=== PATIENT | female | born 1995 | race Caucasian/White ===

== ENCOUNTER 2016-07-31 19:42 | Emergency (ER) | payer MEDICAID ==
[~2016-07-31] VITALS: Ht 160 cm; Wt 85.8 kg
[~2016-07-31 19:42] MED LIST: HYDR-3533 PO; Z.0.BCPILL PO; ZOFR4TAB3 SL
[2016-07-31 20:00] VITALS: BP 143/82; PULSE 86; RESP 16; TEMP 99.1; O2SAT 100
[2016-07-31 21:29] VITALS: BP 121/69; PULSE 67; RESP 18; O2SAT 97
[2016-07-31 21:34] VITALS: BP 113/53; PULSE 112; RESP 18; O2SAT 100
[2016-07-31] MEDS ORDERED: ASPIRIN 81 MG CHEW TAB PO ONE (21:45)
[2016-07-31] MEDS ORDERED: SODIUM CHLORIDE 0.9% FLUSH 5 ML FLUSH IVF PRN (21:45)
[2016-07-31] MEDS: NITROGLYCERIN 0.4 MG SL 25 TABS/BTL SL SCH ×3 (21:50→22:02)
--- NOTE | 2016-07-31 21:56 | RADHPO ---
EXAM DATE/TIME: 07/31/2016 21:47 [facility] COMPARISON: No previous studies available for comparison. INDICATIONS : Chest pain MEDICAL HISTORY : None. SURGICAL HISTORY : None. ENCOUNTER: Initial ACUITY: 2 days PAIN SCORE: 6/10 LOCATION: Bilateral chest FINDINGS: PA and lateral views of the chest demonstrate the lungs to be symmetrically aerated without evidence of mass, infiltrate or effusion. The cardiomediastinal contours are unremarkable. Osseous structure s are intact. CONCLUSION: No acute disease. Jan Perdue MD on July 31, 2016 at 21:54 Board Certified Radiologist. This report was verified electronically.
[2016-07-31 22:05] VITALS: RESP 18; O2SAT 100
[2016-07-31 22:11] VITALS: BP 123/61; PULSE 87; RESP 16; O2SAT 98
[2016-07-31 22:15] LABS: AUTOMATED NEUTROPHIL # 5.6 TH/MM3 (1.8-7.7); BASOPHIL # 0.1 TH/MM3 (0-0.2); BASOPHIL % 0.9 % (0.0-2.0); EOSINOPHIL # 0.1 TH/MM3 (0-0.4); EOSINOPHIL % 1.7 % (0.0-4.0); HEMATOCRIT 37.9 % (35.0-46.0); HEMO FLAGS DIFF FINAL; LYMPHOCYTE # 2.1 TH/MM3 (1.0-4.8); MEAN CELL VOLUME 79.5 FL (80.0-100.0); MEAN CORPUSCULAR HEMOGLOBIN 27.7 PG (27.0-34.0); MEAN CORPUSCULAR HGB CONC 34.8 % (32.0-36.0); MONO % 4.8 % (0.0-8.0); NEUT % 67.6 % (16.0-70.0); PLATELET COUNT 255 TH/MM3 (150-450); RED BLOOD COUNT 4.76 MIL/MM3 (4.00-5.30); RED CELL DISTRIBUTION WIDTH 12.4 % (11.6-17.2); WHITE BLOOD COUNT 8.3 TH/MM3 (4.0-11.0)
[2016-07-31 22:23] LABS: CHLORIDE 109 MEQ/L (98-107); POTASSIUM 3.7 MEQ/L (3.5-5.1); SODIUM (NA) 143 MEQ/L (136-145)
[2016-07-31 22:26] LABS: ANION GAP 8 MEQ/L (5-15); BICARBONATE 26.4 MEQ/L (21.0-32.0)
[2016-07-31 22:27] LABS: BLOOD UREA NITROGEN 9 MG/DL (7-18); MAGNESIUM 2.3 MG/DL (1.5-2.5)
[2016-07-31 22:30] LABS: ALT (GPT) 14 U/L (9-42); AST (GOT) 13 U/L (16-38); GLOMERULAR FILTRATION RATE 84 ML/MIN (>89)
[2016-07-31 22:31] LABS: TOTAL BILIRUBIN ADULT 0.2 MG/DL (0.2-1.0)
[2016-07-31 22:32] LABS: ALKALINE PHOSPHATASE 90 U/L (45-117); CREATINE KINASE 131 U/L (26-192)
[2016-07-31 22:45] LABS: CKMB LESS THAN 0.5 NG/ML (0.5-3.6)
[2016-07-31] MEDS ORDERED: IBUP-232 PO (23:07)
--- NOTE | 2016-07-31 23:09 | PD ---
HPI Chief Complaint: Chest Pain Time Seen by Provider: 20:27 Travel History International Travel<30 days: No Contact w/Intl Traveler<30days: No Traveled to known affect area: No History of Present Illness HPI The patient is a 21-year-old female that complains of a somewhat sharp and pleuritic chest pain for 2 weeks. She has no history of heart disease or heart murmur. She denies any nausea, vomiting, shortness of breath, diaphoresis or radiation of pain. She denies any palpitations, syncopal or near syncopal spells. She denies any recent fever or cough. PFSH Past Medical History Autoimmune Disease: No Cancer: No Cardiovascular Problems: No Diminished Hearing: No Endocrine: No Gastrointestinal Disorders: No Genitourinary: No Immune Disorder: No Implanted Vascular Access Dvce: No Musculoskeletal: No Neurologic: No Psychiatric: No Reproductive: No Respiratory: No Influenza Vaccination: No ?: Not LMP: UNKNOWN IUD IN PLACE : 4 Para: 2 Miscarriage: 1 : 1 Past Surgical History Section: Yes Other Surgery: No Social History Alcohol Use: No Tobacco Use: No Substance Use: No Allergies-Medications (Allergen,Severity, Reaction): Coded Allergies: No Known Allergies (Verified , 07/31/16) Reported Meds & Prescriptions Reported Meds & Active Scripts Active No Active Prescriptions or Reported Medications Review of Systems Except as stated in HPI: all other systems reviewed are Neg Physical Exam Narrative GENERAL: The patient is alert, oriented 3 in no minimal apparent distress. The blood pressure is 143/82 but the rest the vital signs are normal. The temperature is 99.1. SKIN: Warm and dry. No skin rash is seen. HEAD: Atraumatic. Normocephalic. EYES: Pupils equal and round. No scleral icterus. No injection or drainage. ENT: No nasal bleeding or discharge. Mucous membranes pink and moist. Throat is clear and tympanic membranes are clear. NECK: Trachea midline. No JVD. CARDIOVASCULAR: Regular rate and rhythm. No murmur appreciated. RESPIRATORY: No accessory muscle use. Clear to auscultation. Breath sounds equal bilaterally. GASTROINTESTINAL: Abdomen soft, non-tender, nondistended. Hepatic and splenic margins not palpable. MUSCULOSKELETAL: No obvious deformities. No clubbing. No cyanosis. No edema. NEUROLOGICAL: Awake and alert. No obvious cranial nerve deficits. Motor grossly within normal limits. Normal speech. PSYCHIATRIC: Appropriate mood and affect; insight and judgment normal. Data Data Last Documented VS Vital Signs Date Time Temp Pulse Resp B/P Pulse Ox O2 Delivery O2 Flow Rate FiO2 07/31/16 22:11 87 16 123/61 98 Room Air 07/31/16 20:00 99.1 Orders Electrocardiogram (07/31/16 21:37) Ckmb (Isoenzyme) Profile (07/31/16 21:37) Complete Blood Count With Diff (07/31/16 21:37) Comprehensive Metabolic Panel (07/31/16 21:37) Magnesium (Mg) (07/31/16 21:37) Troponin I (07/31/16 21:37) Ecg Monitoring (07/31/16 21:37) Iv Access Insert/Monitor (07/31/16 21:37) Oximetry (07/31/16 21:37) Oxygen Administration (07/31/16 21:37) Aspirin Chew (Aspirin Chew) (07/31/16 21:45) Sodium Chloride 0.9% Flush (Ns Flush) (07/31/16 21:45) Nitroglycerin Sl (Nitrostat Sl) (07/31/16 21:45) Chest, Pa & Lat (07/31/16 21:37) CKMB (07/31/16 22:00) CKMB% (07/31/16 22:00) Labs Laboratory Tests Test 07/31/16 22:00 White Blood Count 8.3 TH/MM3 Red Blood Count 4.76 MIL/MM3 Hemoglobin 13.2 GM/DL Hematocrit 37.9 % Mean Corpuscular Volume 79.5 FL Mean Corpuscular Hemoglobin 27.7 PG Mean Corpuscular Hemoglobin 34.8 % Concent Red Cell Distribution Width 12.4 % Platelet Count 255 TH/MM3 Mean Platelet Volume 7.8 FL Neutrophils (%) (Auto) 67.6 % Lymphocytes (%) (Auto) 25.0 % Monocytes (%) (Auto) 4.8 % Eosinophils (%) (Auto) 1.7 % Basophils (%) (Auto) 0.9 % Neutrophils # (Auto) 5.6 TH/MM3 Lymphocytes # (Auto) 2.1 TH/MM3 Monocytes # (Auto) 0.4 TH/MM3 Eosinophils # (Auto) 0.1 TH/MM3 Basophils # (Auto) 0.1 TH/MM3 CBC Comment DIFF FINAL Differential Comment Sodium Level 143 MEQ/L Potassium Level 3.7 MEQ/L Chloride Level 109 MEQ/L Carbon Dioxide Level 26.4 MEQ/L Anion Gap 8 MEQ/L Blood Urea Nitrogen 9 MG/DL Creatinine 0.86 MG/DL Estimat Glomerular Filtration 84 ML/MIN Rate Random Glucose 86 MG/DL Calcium Level 9.0 MG/DL Magnesium Level 2.3 MG/DL Total Bilirubin 0.2 MG/DL Aspartate Amino Transf 13 U/L (AST/SGOT) Alanine Aminotransferase 14 U/L (ALT/SGPT) Alkaline Phosphatase 90 U/L Total Creatine Kinase 131 U/L Creatine Kinase MB LESS THAN 0.5 NG/ML Troponin I LESS THAN 0.02 NG/ML Total Protein 8.1 GM/DL Albumin 3.9 GM/DL [facility] Medical Decision Making Medical Screen Exam Complete: Yes Emergency Medical Condition: Yes Medical Record Reviewed: Yes Interpretation(s) The complete metabolic profile shows a GFR of 84 but is otherwise normal. The cardiac enzymes are normal. The CBC is normal. The EKG shows normal sinus rhythm with a rate of 77 and is completely normal. Differential Diagnosis Chest wall pain, pleuritic chest pain, acute coronary syndrome, esophageal pain , gastrointestinal pain Narrative Course The patient appears to have pleuritic chest pain. Plan: The patient will be given Motrin 600 mg 3 times daily and follow-up with her primary care physician. Diagnosis Primary Impression: Pleuritic chest pain Additional Instructions: It is necessary to take the Motrin regularly, 1 tablet 3 times daily. After 3 or 4 days the pain should start subsiding. Follow-up next week with your primary care physician. Med/Other Pt SpecificInfo: Prescription(s) given Scripts Ibuprofen 600 Mg [id number] Mg PO TID #45 TAB Ref 0 Prov:Harpal Goodrich MD 07/31/16 Disposition: 01 DISCHARGE HOME Condition: Stable Harpal Goodrich MD Jul 31, 2016 23:09
[2016-07-31] MEDS ORDERED: KETOROLAC TROMETHAMINE 60 MG/2 ML (IM) VIAL IVP ONE (23:15)
[2016-07-31 23:20] VITALS: BP 119/66; PULSE 78; RESP 16; O2SAT 97
--- NOTE | 2016-08-01 14:01 | EKG ---
Date Performed: 07/31/2016 Time Performed: 22:04:34 PTAGE: 21 years EKG: Sinus rhythm . Since previous tracing, no significant change noted Normal ECG PREVIOUS TRACING : 03/21/2016 21.47 DOCTOR: Srini Ta Interpretating Date/Time 08/01/2016 13:57:38
== END 2016-07-31 23:39 | disposition home or self-care (01) ==
LOC: PHED 19:42
DX: R07.81 Pleurodynia (principal)
CPT/HCPCS: 71020; 80053; 82550; 82552; 83735; 84484; 85025; 93005; 96374; 99284; J1885

== ENCOUNTER 2017-06-02 20:03 | Emergency (ER) | payer MEDICAID ==
[~2017-06-02] VITALS: Ht 160 cm; Wt 88.0 kg
[~2017-06-02 20:03] MED LIST changes: -HYDR-3533 PO; +IBUP-232 PO; -Z.0.BCPILL PO; -ZOFR4TAB3 SL
[2017-06-02 20:22] VITALS: BP 140/75; PULSE 81; RESP 16; TEMP 98.2; O2SAT 98
[2017-06-02] MEDS ORDERED: PRED20 PO (20:36)
--- NOTE | 2017-06-02 20:42 | PD ---
HPI Chief Complaint: ENT Complaint Time Seen by Provider: 20:29 Travel History International Travel<30 days: No Contact w/Intl Traveler<30days: No Traveled to known affect area: No History of Present Illness HPI 22-year-old female presents wears Department with complaints of worsening sore throat over the past 5 days. Patient states she feels like she has swollen glands in the anterior neck which if worsening. Patient feels she may have had a low-grade fever the last several days but otherwise denies headache, cough, ear pain, heartburn, nausea, vomiting, or diarrhea. She has no known drug allergies. PFSH Past Medical History Autoimmune Disease: No Cancer: No Cardiovascular Problems: No Diminished Hearing: No Endocrine: No Gastrointestinal Disorders: No Genitourinary: No Immune Disorder: No Implanted Vascular Access Dvce: No Musculoskeletal: No Neurologic: No Psychiatric: No Reproductive: No Respiratory: No Tetanus Vaccination: Unknown Influenza Vaccination: No ?: Not : 4 Para: 2 Miscarriage: 1 : 1 Past Surgical History Section: Yes Other Surgery: No Social History Alcohol Use: No Tobacco Use: No Substance Use: No Allergies-Medications (Allergen,Severity, Reaction): Coded Allergies: No Known Allergies (Verified Adverse Reaction, Unknown, 06/02/17) Reported Meds & Prescriptions Reported Meds & Active Scripts Active Prednisone 20 Mg Tab 20 Mg PO DAILY 5 Days Review of Systems Except as stated in HPI: all other systems reviewed are Neg General / Constitutional: Positive: Fever Eyes: No: Visual changes HENT: Positive: Sore Throat, Neck Stiffness, Neck Pain, Other (swollen glands.) , No: Headaches, Vertigo, Lightheadedness, Rhinitis, Rhinorrhea, Congestion, Nosebleed, Masses (see history present illness), Dental Difficulties, Ear Discharge, Earache Cardiovascular: No: Chest Pain or Discomfort Respiratory: No: Cough, Shortness of Breath, Wheezing Gastrointestinal: No: Nausea, Vomiting, Diarrhea, Abdominal Pain Genitourinary: No: Dysuria Musculoskeletal: No: Pain Skin: No Rash Neurologic: No: Weakness Psychiatric: No: Depression Endocrine: No: Polydipsia Hematologic/Lymphatic: No: Easy Bruising Physical Exam Narrative GENERAL: Patient appears no acute distress. She has a normal sounding voice. SKIN: Warm and dry. Color. Normal turgor. HEAD: Atraumatic. Normocephalic. EYES: Pupils equal and round. No scleral icterus. No injection or drainage. ENT: No nasal bleeding or discharge. Mucous membranes pink and moist. Posterior pharynx looks completely normal. No sinus tenderness. TMs are clear bilaterally. Uvula is midline. Tonsils appear unremarkable. There is no erythema or exudate. No signs of peritonsillar or pharyngeal abscess. NECK: Trachea midline. Supple. She has tender anterior lymphangitis bilaterally more on the left than the right, but no signs of obvious tonsillar abscess. CARDIOVASCULAR: Regular rate and rhythm. RESPIRATORY: No accessory muscle use. Clear to auscultation. Breath sounds equal bilaterally. GASTROINTESTINAL: Abdomen soft, non-tender, nondistended. Hepatic and splenic margins not palpable. MUSCULOSKELETAL: Extremities without clubbing, cyanosis, or edema. No obvious deformities. NEUROLOGICAL: Awake and alert. No obvious cranial nerve deficits. Motor grossly within normal limits. Five out of 5 muscle strength in the arms and legs. Normal speech. PSYCHIATRIC: Appropriate mood and affect; insight and judgment normal. Data Data Last Documented VS Vital Signs Date Time Temp Pulse Resp B/P (MAP) Pulse Ox O2 Delivery O2 Flow Rate FiO2 06/02/17 20:22 98.2 81 16 140/75 (96) 98 Orders Orders Prednisone (Deltasone) (06/02/17 20:45) MDM Medical Decision Making Medical Screen Exam Complete: Yes Emergency Medical Condition: Yes Differential Diagnosis Upper extremity infection. Lymphangitis. Viral syndrome. Narrative Course Patient is felt medically stable at this time. Patient is given prednisone 40 mg by mouth for inflammation. Patient continued on prednisone 20 mg daily for the next 5 days. Patient is encouraged to use Tylenol, soft foods, and ice chips frequently. Patient should follow-up with her primary care physician or return with worsening symptoms as needed. Diagnosis Primary Impression: Upper respiratory infection Qualified Codes: J06.9 - Acute upper respiratory infection, unspecified; B97.89 - Other viral agents as the cause of diseases classified elsewhere Additional Impression: Lymphangitis Referrals: Primary Care Physician as needed Patient Instructions: General Instructions, Lymphangitis (ED), Prednisone (By mouth) Additional Instructions: Patient is felt medically stable at this time. Patient is given prednisone 40 mg by mouth for inflammation. Patient continued on prednisone 20 mg daily for the next 5 days. Patient is encouraged to use Tylenol, soft foods, and ice chips frequently. Patient should follow-up with her primary care physician or return with worsening symptoms as needed. Med/Other Pt SpecificInfo: Prescription(s) given Scripts Prednisone (Prednisone) 20 Mg Tab 20 MG PO DAILY for 5 Days, #5 TAB 0 Refills Prov: Dieter Beck MD 06/02/17 Disposition: 01 DISCHARGE HOME Condition: Stable Luis Alberto Montenegro Jun 02, 2017 20:42
[2017-06-02] MEDS ORDERED: predniSONE 20 MG TAB PO ONE (20:45)
== END 2017-06-02 20:52 | disposition home or self-care (01) ==
LOC: PHEFT 20:03
DX: J06.9 Acute upper respiratory infection, unspecified (principal); B97.89 Other viral agents as the cause of diseases classified elsewhere; I89.1 Lymphangitis; R50.9 Fever, unspecified
CPT/HCPCS: 99283; J7512

== ENCOUNTER 2017-07-22 21:49 | Emergency (ER) | payer MEDICAID ==
[~2017-07-22] VITALS: Ht 160 cm; Wt 86.2 kg
[~2017-07-22 21:49] MED LIST changes: -IBUP-232 PO; +PRED20 PO
[2017-07-22 22:01] VITALS: BP 149/57; PULSE 75; RESP 18; TEMP 98.7; O2SAT 100
[2017-07-22] MEDS ORDERED: MORPHINE SULFATE 4 MG/ML INJ IV PUSH ONE (22:15)
[2017-07-22] MEDS ORDERED: MORPHINE SULFATE 2 MG/ML INJ IV PUSH ONE (22:15)
[2017-07-22] MEDS ORDERED: ONDANSETRON HCL 4 MG/2 ML VIAL IVP ONE (22:15)
--- NOTE | 2017-07-22 22:20 | PD ---
HPI Chief Complaint: Abdominal Pain Time Seen by Provider: 22:03 Travel History International Travel<30 days: No Contact w/Intl Traveler<30days: No Traveled to known affect area: No History of Present Illness HPI The patient was seen and examined in the presence of the nurse. This patient complains of abdominal pain. Location is right upper quadrant. Severity is moderate. Duration 4 hours. She gets pain roughly once per month. She says that her doctor wasn't concerned with it and so nothing is been done. Started shortly after eating [employer]. Denies fever. No vomiting. No diarrhea. No alleviating factors. Symptoms exacerbated by fatty meal. PFSH Past Medical History Autoimmune Disease: No Cancer: No Cardiovascular Problems: No Diminished Hearing: No Endocrine: No Gastrointestinal Disorders: No Genitourinary: No Immune Disorder: No Implanted Vascular Access Dvce: No Musculoskeletal: No Neurologic: No Psychiatric: No Reproductive: No Respiratory: No : 4 Para: 2 Miscarriage: 1 : 1 Past Surgical History Section: Yes Other Surgery: No Social History Alcohol Use: No Tobacco Use: No Substance Use: No Allergies-Medications (Allergen,Severity, Reaction): Coded Allergies: No Known Allergies (Verified Adverse Reaction, Unknown, 07/22/17) Reported Meds & Prescriptions Reported Meds & Active Scripts Active Zofran (Ondansetron HCl) 4 Mg Tab 4 Mg PO Q6HR PRN Tramadol (Tramadol HCl) 50 Mg Tab 50 Mg PO Q6H PRN Review of Systems General / Constitutional: No: Fever Eyes: No: Visual changes HENT: No: Headaches Cardiovascular: No: Chest Pain or Discomfort Respiratory: No: Shortness of Breath Gastrointestinal: Positive: Abdominal Pain Genitourinary: No: Dysuria Musculoskeletal: No: Pain Skin: No Rash Neurologic: No: Weakness Psychiatric: No: Depression Endocrine: No: Polydipsia Hematologic/Lymphatic: No: Easy Bruising Physical Exam Narrative GENERAL: Well-nourished, well-developed patient with some abdominal pain . SKIN: Focused skin assessment reveals no rash and nodules. Skin is Warm and dry. HEAD: Atraumatic. Normocephalic. EYES: Pupils equal and round. No scleral icterus. No injection or drainage. ENT: No nasal bleeding or discharge. Mucous membranes pink and moist. NECK: Trachea midline. No JVD. CARDIOVASCULAR: Regular rate and rhythm. No murmur appreciated. RESPIRATORY: No accessory muscle use. Clear to auscultation. Breath sounds equal bilaterally. GASTROINTESTINAL: Abdomen soft, mild right upper quadrant tenderness without rebound or guarding, nondistended. Hepatic and splenic margins not palpable. MUSCULOSKELETAL: No obvious deformities. No clubbing. No cyanosis. No edema. NEUROLOGICAL: Awake and alert. No obvious cranial nerve deficits. Motor grossly within normal limits. Normal speech. PSYCHIATRIC: Appropriate mood and affect; insight and judgment normal. Data Data Last Documented VS Vital Signs Date Time Temp Pulse Resp B/P (MAP) Pulse Ox O2 Delivery O2 Flow Rate FiO2 07/22/17 22:17 18 07/22/17 22:01 98.7 75 149/57 (87) 100 Orders Orders Ondansetron Inj (Zofran Inj) (07/22/17 22:15) Morphine Inj (Morphine Inj) (07/22/17 22:15) Morphine Inj (Morphine Inj) (07/22/17 22:15) Iv Access Insert/Monitor (07/22/17 22:11) Complete Blood Count With Diff (07/22/17 22:11) Comprehensive Metabolic Panel (07/22/17 22:11) Lipase (07/22/17 22:11) Ed Urine Pregnancytest Poc (07/22/17 22:13) Labs Laboratory Tests Test 07/22/17 22:25 White Blood Count 8.1 TH/MM3 Red Blood Count 4.75 MIL/MM3 Hemoglobin 12.7 GM/DL Hematocrit 39.4 % Mean Corpuscular Volume 82.9 FL Mean Corpuscular Hemoglobin 26.8 PG Mean Corpuscular Hemoglobin Concent 32.3 % Red Cell Distribution Width 12.7 % Platelet Count 241 TH/MM3 Mean Platelet Volume 8.2 FL Neutrophils (%) (Auto) 66.8 % Lymphocytes (%) (Auto) 27.2 % Monocytes (%) (Auto) 4.0 % Eosinophils (%) (Auto) 1.5 % Basophils (%) (Auto) 0.5 % Neutrophils # (Auto) 5.5 TH/MM3 Lymphocytes # (Auto) 2.2 TH/MM3 Monocytes # (Auto) 0.3 TH/MM3 Eosinophils # (Auto) 0.1 TH/MM3 Basophils # (Auto) 0.0 TH/MM3 CBC Comment DIFF FINAL Differential Comment Blood Urea Nitrogen 16 MG/DL Creatinine 0.89 MG/DL Random Glucose 96 MG/DL Total Protein 8.0 GM/DL Albumin 3.9 GM/DL Calcium Level 9.1 MG/DL Aspartate Amino Transf (AST/SGOT) 12 U/L Alanine Aminotransferase (ALT/SGPT) 14 U/L Total Bilirubin 0.2 MG/DL Sodium Level 138 MEQ/L Potassium Level 3.8 MEQ/L Chloride Level 105 MEQ/L Carbon Dioxide Level 26.0 MEQ/L Anion Gap 7 MEQ/L Estimat Glomerular Filtration Rate 80 ML/MIN Lipase 150 U/L [facility] Medical Decision Making Medical Screen Exam Complete: Yes Emergency Medical Condition: Yes Medical Record Reviewed: Yes Differential Diagnosis Differential diagnosis includes pancreatitis, biliary colic, hepatitis, GERD, peptic ulcer disease. Narrative Course I have reviewed the patient's electronic medical record. IV placed CBC is normal metabolic profile is normal LFT's are normal lipase is normal I gave her injection of morphine and Zofran for symptom relief On recheck she is doing well. Workup is negative. She may be having biliary colic. She should discuss this with her physician. Consider outpatient ultrasound. She should've a low-fat bland diet. Diagnosis Primary Impression: Biliary colic Additional Instructions: The patient was advised to follow up with their physician and return if they worsen. The patient was warned about potential sedation for the medications they will receive on prescription. Have a low-fat bland diet Med/Other Pt SpecificInfo: Prescription(s) given Scripts Ondansetron (Zofran) 4 Mg Tab 4 MG PO Q6HR Y for NAUSEA OR VOMITING, #14 TAB 0 Refills Prov: Gume Gamble MD 07/22/17 Tramadol (Tramadol) 50 Mg Tab 50 MG PO Q6H Y for PAIN, #20 TAB 0 Refills Prov: Gume Gamble MD 07/22/17 Disposition: 01 DISCHARGE HOME Condition: Stable Gume Gamble MD Jul 22, 2017 22:20
[2017-07-22 22:39] LABS: AUTOMATED NEUTROPHIL # 5.5 TH/MM3 (1.8-7.7); BASOPHIL % 0.5 % (0.0-2.0); EOSINOPHIL # 0.1 TH/MM3 (0-0.4); EOSINOPHIL % 1.5 % (0.0-4.0); HEMATOCRIT 39.4 % (35.0-46.0); HEMOGLOBIN 12.7 GM/DL (11.6-15.3); LYMPH % 27.2 % (9.0-44.0); LYMPHOCYTE # 2.2 TH/MM3 (1.0-4.8); MEAN CELL VOLUME 82.9 FL (80.0-100.0); MEAN CORPUSCULAR HEMOGLOBIN 26.8 PG (27.0-34.0); MEAN CORPUSCULAR HGB CONC 32.3 % (32.0-36.0); MEAN PLATELET VOLUME 8.2 FL (7.0-11.0); MONOCYTE # 0.3 TH/MM3 (0-0.9); NEUT % 66.8 % (16.0-70.0); PLATELET COUNT 241 TH/MM3 (150-450); RED BLOOD COUNT 4.75 MIL/MM3 (4.00-5.30); RED CELL DISTRIBUTION WIDTH 12.7 % (11.6-17.2); WHITE BLOOD COUNT 8.1 TH/MM3 (4.0-11.0)
[2017-07-22 22:58] LABS: CHLORIDE 105 MEQ/L (98-107); SODIUM (NA) 138 MEQ/L (136-145)
[2017-07-22 23:01] LABS: ALBUMIN 3.9 GM/DL (3.4-5.0); CALCIUM 9.1 MG/DL (8.5-10.1); GLUCOSE,RANDOM 96 MG/DL (74-106); LIPASE 150 U/L (73-393)
[2017-07-22] MEDS ORDERED: TRAM50TA PO (23:01)
[2017-07-22] MEDS ORDERED: ZOFR4TAB PO (23:01)
[2017-07-22 23:02] LABS: BLOOD UREA NITROGEN 16 MG/DL (7-18)
[2017-07-22 23:04] LABS: ALT (GPT) 14 U/L (10-53); AST (GOT) 12 U/L (15-37)
[2017-07-22 23:05] LABS: CREATININE 0.89 MG/DL (0.50-1.00); GLOMERULAR FILTRATION RATE 80 ML/MIN (>89)
[2017-07-22 23:06] LABS: TOTAL BILIRUBIN ADULT 0.2 MG/DL (0.2-1.0)
[2017-07-22 23:07] LABS: ALKALINE PHOSPHATASE 85 U/L (45-117)
[2017-07-22 23:11] VITALS: BP 128/68; PULSE 72; RESP 18; O2SAT 99
== END 2017-07-22 23:22 | disposition home or self-care (01) ==
LOC: PHED 21:49
DX: K80.50 Calculus of bile duct without cholangitis or cholecystitis without obstruction (principal)
CPT/HCPCS: 80053; 83690; 84703; 85025; 96374; 96375; 99284; J2270; J2405

== ENCOUNTER 2017-10-07 22:05 | Emergency (ER) | payer MEDICAID ==
[~2017-10-07] VITALS: Ht 160 cm; Wt 85.0 kg
[~2017-10-07 22:05] MED LIST changes: -PRED20 PO; +TRAM50TA PO; +ZOFR4TAB PO
[2017-10-07 22:22] VITALS: BP 136/98; PULSE 90; RESP 18; TEMP 97.9; O2SAT 99
--- NOTE | 2017-10-07 23:00 | PD ---
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 Patient is also having some bilateral lower abdominal pain discomfort since this morning. No bleeding or spotting. Patient has an IUD and was concerned for tubal . Patient is A2. She does not have any other complaints. Bedside urine done in the emergency room was negative. PFSH Past Medical History Narrative Medical List of her past medical, surgical, social and family history is reviewed from the nursing note. Autoimmune Disease: No Cancer: No Cardiovascular Problems: No Diminished Hearing: No Endocrine: No Gastrointestinal Disorders: No Genitourinary: No Immune Disorder: No Implanted Vascular Access Dvce: No Musculoskeletal: No Neurologic: No Psychiatric: No Reproductive: No Respiratory: No Tetanus Vaccination: < 5 Years ?: Unknown LMP: 08/23/2017 : 4 Para: 2 Miscarriage: 1 : 1 Past Surgical History Section: Yes Cholecystectomy: Yes Other Surgery: No Social History Alcohol Use: No Tobacco Use: Yes Substance Use: No Allergies-Medications (Allergen,Severity, Reaction): Coded Allergies: No Known Allergies (Verified Adverse Reaction, Unknown, 10/10/17) Comments List of allergies reviewed from the nursing note. Reported Meds & Prescriptions Reported Meds & Active Scripts Active Zofran (Ondansetron HCl) 4 Mg Tab 4 Mg PO Q6HR PRN Tramadol (Tramadol HCl) 50 Mg Tab 50 Mg PO Q6H PRN Narrative Medication List of her home medications reviewed from the nursing note. Review of Systems Except as stated in HPI: all other systems reviewed are Neg Genitourinary: Positive: Pelvic Pain Physical Exam Narrative GENERAL: Awake, alert, no obvious discharge SKIN: Focused skin assessment warm/dry. Acne HEAD: Atraumatic. Normocephalic. EYES: Pupils equal and round. No scleral icterus. No injection or drainage. ENT: No nasal bleeding or discharge. Mucous membranes pink and moist. NECK: Trachea midline. No JVD. CARDIOVASCULAR: Regular rate and rhythm. No murmur appreciated. RESPIRATORY: No accessory muscle use. Clear to auscultation. Breath sounds equal bilaterally. GASTROINTESTINAL: Abdomen soft, non-tender, nondistended. Hepatic and splenic margins not palpable. MUSCULOSKELETAL: No obvious deformities. No clubbing. No cyanosis. No edema. NEUROLOGICAL: Alert and awake. No obvious cranial nerve deficits. Motor grossly within normal limits. Normal speech. PSYCHIATRIC: Appropriate mood and affect; insight and judgment normal. Data Data Last Documented VS Orders Orders Beta Hcg (Quant/Titer) (10/07/17 23:01) Urinalysis - C+S If Indicated (10/07/17 23:01) Us Pelvis (Ques Pr/Ect)W Trans (10/08/17 ) Ed Discharge Order (10/08/17 03:42) Mandatory Outpatient Referral (10/08/17 03:44) Labs Laboratory Tests Test 10/07/17 23:10 10/07/17 23:17 Urine Color COLORLESS Urine Turbidity CLEAR Urine pH 6.0 Urine Specific [place]on 1.002 Urine Protein NEG mg/dL Urine Glucose (UA) NEG mg/dL Urine Ketones NEG mg/dL Urine Occult Blood NEG Urine Nitrite NEG Urine Bilirubin NEG Urine Urobilinogen LESS THAN 2.0 MG/DL Urine Leukocyte Esterase NEG Urine WBC LESS THAN 1 /hpf Urine Squamous Epithelial Cells 2 /hpf Microscopic Urinalysis Comment CULT NOT INDICATED Human Chorionic Gonadotropin, Quant 97 MIU/ML MDM Medical Decision Making Medical Screen Exam Complete: Yes Emergency Medical Condition: Yes Medical Record Reviewed: Yes Differential Diagnosis , no , ectopic Narrative Course 11:15 PM awaiting for beta hCG since the urine was negative. 1:01 AM beta hCG count is 97. UA is negative. Based on this I have ordered a pelvic ultrasound. Awaiting for the ultrasound to be done and resulted. I've informed the patient regarding this. 3:42 AM ultrasound does not show any intra-uterine . Patient will be discharged home. She has been recommended to return in 48 hours for repeat HCG. Procedures EKG Prior to Arrival: No Diagnosis Primary Impression: Qualified Codes: Z34.90 - Encounter for supervision of normal , unspecified, unspecified trimester Additional Impression: Pelvic pain during Referrals: Juliet Moore MD 2 days Additional Instructions: Return to the ER in 24 hours or follow up with a [employer] who is name and number been given to you to get a repeat blood test for beta-hCG. Disposition: 01 DISCHARGE HOME Condition: Stable Dieter Beck MD Oct 07, 2017 23:00
[2017-10-07 23:25] LABS: BILIRUBIN, URINE NEG (NEG); BLOOD, URINE NEG (NEG); GLUCOSE,URINE NEG (NEG); KETONE, URINE NEG (NEG); NITRITE,URINE NEG (NEG); SQUAMOUS EPITHELIAL CELL URINE 2 /hpf (0-5); URINE COLOR COLORLESS (YELLW/STRAW); URINE LEUKOCYTE ESTERASE NEG (NEG)
--- NOTE | 2017-10-08 03:20 | RADRPT ---
EXAM DATE/TIME: 10/08/2017 02:02 [facility] COMPARISON: No previous studies available for comparison. INDICATIONS : Left sided pelvic pain. LAB(S): Beta-hC MEDICAL HISTORY : . Tobacco use. SURGICAL HISTORY : Cholecystectomy. section. ENCOUNTER: Initial ACUITY: 2 days PAIN SCORE: 1/10 LOCATION: Bilateral pelvis MEASUREMENTS: UTERUS: 8.6 x 5.6 x 4.8 cm ENDOMETRIAL STRIPE: 6 mm RIGHT OVARY: 2.7 x 2.3 x 2.4 cm LEFT OVARY: 3.1 x 2.6 x 2.0 cm FREE FLUID: Yes cul de sac FINDINGS: An IUD is in place with shadowing seen in the fundus and midbody. No gestational sac is identified. No endometrial fluid seen. In the myometrium of the anterior fundus, there is an elongated hypoecho ic structure which measures 1.8 x 0.7 x 0.4 cm, of uncertain significance. Both ovaries are identifi ed and have a sonographically normal appearance with small bilateral follicular cysts. There is a sy mmetric pattern of flow by color Doppler to both adnexa. Minimal amount of free fluid seen in the cu l-de-sac. CONCLUSION: 1. Intrauterine is not identified. There is an IUD in place. 2. Bilateral ovarian follicular cysts. 3. Minimal amount of free fluid in the cul-de-sac. 4. Recommend serial beta hCG and obstetrical followup. Sharan Obrien MD on October 08, 2017 at 3:15 Board Certified Radiologist. This report was verified electronically.
== END 2017-10-08 03:57 | disposition home or self-care (01) ==
LOC: NEPC 22:05
DX: R10.2 Pelvic and perineal pain (principal); Z72.0 Tobacco use
CPT/HCPCS: 76700; 76817; 81001; 84702; 99284

== ENCOUNTER 2017-10-09 23:03 | Emergency (ER) | payer MEDICAID ==
[~2017-10-09] VITALS: Ht 160 cm; Wt 85.0 kg
[2017-10-10 00:06] VITALS: BP 119/65; PULSE 79; RESP 16; TEMP 98.5; O2SAT 100
== END 2017-10-10 02:17 | disposition left against medical advice (07) ==
LOC: NED 23:03
DX: Z03.89 Encounter for observation for other suspected diseases and conditions ruled out (principal)
CPT/HCPCS: 99281